=== PATIENT | male | born 1990 | race Caucasian/White ===

== ENCOUNTER 2023-11-12 12:59 | Emergency (ER) | payer MEDICAID ==
[~2023-11-12] VITALS: Ht 175.3 cm; Wt 82.7 kg
[2023-11-12 13:06] VITALS: TEMP 97.7
[2023-11-12] MEDS ORDERED: Ibuprofen 600 MG TAB PO ONE (13:30)
[2023-11-12 13:38] VITALS: BP 131/80; PULSE 96
== END 2023-11-12 13:40 | disposition home or self-care (01) ==
LOC: COL.ER 12:59
DX: S86.912A Strain of unspecified muscle(s) and tendon(s) at lower leg level, left leg, initial encounter (principal); X58.XXXA Exposure to other specified factors, initial encounter; Y93.02 Activity, running